=== PATIENT | female | born 1960 | race Caucasian/White ===

== ENCOUNTER 2016-10-10 08:56 | Emergency (ER) | payer BC ==
[~2016-10-10] VITALS: Ht 157.5 cm; Wt 54.4 kg
--- NOTE | ~2016-10-10 | CR127 ---
[facility] A Service of [facility] & [facility] RADIOLOGY TEXT RESULTS PATIENT: SHELBY BRUSH LOCATION: [facility] : 60 UNIT #: [id number] AGE: [address]: Lolly Paris APRN SEX: F ORDER DR: [id number] [facility] [address] [place], [place] [address] [id number] E MR#: [id number] #: [id number] NAME: SHELBY BRUSH. : 1960 SEX: F STUDY DATE/TIME: 10/10/2016 10:21 UNIT: [facility] ROOM: STUDY DESCRIPTION: CR Foot Complete Min 3 View Rt Attending Physician: Lolly Paris A.P.R.N. Ordering Physician: Ed Doctor [id number] [facility] Primary Care Physician: Sussy Deutsch M.D. MEDICAL IMAGING REPORT This report is preliminary unless electronic signature is present EXAM Right foot, 3 views COMPARISON None INDICATION 56-year-old female with right foot pain, swelling and redness after being bit by her dog 5 days ago. FINDINGS There is minimal enthesopathy at both poles of the calcaneal tubercle. Bones are anatomically aligned. No evidence of acute fracture. There is mild swelling over the dorsum of the foot without subcutaneous gas or radiopaque foreign body. IMPRESSION 1. No acute fracture or dislocation of the right foot. No subcutaneous gas or radiopaque foreign body. 2. Minimal calcaneal enthesopathy. Dictated by... Maury Chance M.D. THIS IS AN ELECTRONICALLY VERIFIED REPORT Maury Chance M.D. at 10/12/2016 10:11 PM Bean TD: 10/10/2016 14:17 JOB #: [id number] MEDICAL IMAGING REPORT Page 1 of 1 COPY
[~2016-10-10 08:56] MED LIST: CALCIUM + D; DIFLUCAN; FERROUS SULFATE; FIBER; FISH OIL 1,0001 CAP; LORTAB 7.5-5001 TAB; MULTI-DAY VITAM1 TAB PO; PREMARIN0.625 MG PO; VITAMINE C
== END 2016-10-10 12:28 | disposition home or self-care (01) ==
LOC: CED 08:56
DX: L03.115 Cellulitis of right lower limb (principal); S91.351A Open bite, right foot, initial encounter; I10 Essential (primary) hypertension; F17.210 Nicotine dependence, cigarettes, uncomplicated; Z23 Encounter for immunization; Z88.2 Allergy status to sulfonamides; Z88.8 Allergy status to other drugs, medicaments and biological substances; W54.0XXA Bitten by dog, initial encounter; Y92.009 Unspecified place in unspecified non-institutional (private) residence as the place of occurrence of the external cause
CPT/HCPCS: 29540; 73630; 90471; 90715; 99283